=== PATIENT | male | born 1965 | race Caucasian/White ===

== ENCOUNTER 2019-07-19 16:01 | Inpatient (IN) | payer OTHER ==
[~2019-07-19] VITALS: Ht 182.9 cm; Wt 91.8 kg
[~2019-07-19 16:01] MED LIST: ALBU90OI6 INH; AZIT250 PO; CODGUAEL PO; META800 PO; OXYACE5T PO; RXMETA400 PO
[2019-07-19 16:32] LABS: BASOPHILS ABSOLUTE AUTO 0.05 K/mm3 (0.00-0.23); BASOPHILS PERCENT AUTO 1 % (0-2); EOSINOPHILS ABSOLUTE AUTO 0.17 K/mm3 (0.00-0.68); EOSINOPHILS PERCENT AUTO 2 % (0-6); Hematocrit 42.5 % (37.0-53.0); Hemoglobin 13.5 g/dL (13.5-17.5); IMMATURE GRAN ABSOLUTE AUTO 0.09 K/mm3 (0.00-0.10); IMMATURE GRAN PERCENT AUTO 1 % (0-1); LYMPHOCYTES ABSOLUTE AUTO 1.99 K/mm3 (0.84-5.20); LYMPHOCYTES PERCENT AUTO 27 % (21-46); MONOCYTES ABSOLUTE AUTO 0.86 K/mm3 (0.16-1.47); MONOCYTES PERCENT AUTO 12 % (4-13); Mean Corpuscular HGB 29.1 pg (26.0-34.0); Mean Corpuscular HGB Conc 31.8 g/dL (31.5-36.5); Mean Corpuscular Volume 92 fL (80-100); Mean Platelet Volume 9.7 fL (9.1-12.4); NEUTROPHILS PERCENT AUTO 58 % (41-73); Platelet Count 172 K/mm3 (150-400); RDW Coefficient Variation 16.2 % (11.7-14.2); Red Blood Cell Count 4.64 M/mm3 (4.30-5.90); White Blood Cell Count 7.46 K/mm3 (4.00-11.30)
[2019-07-19 16:55] LABS: Alanine Aminotransfer (ALT/SGP 31 U/L (12-78); Albumin, Blood 3.2 g/dL (3.4-5.0); Albumin/Globulin Ratio 0.8 (0.8-1.8); Alk Phos 166 U/L (50-136); Anion Gap 4 mmol/L (6-16); Aspartate Aminotrans (AST/SGOT 27 U/L (12-37); Bilirubin, Total 1.1 mg/dL (0.1-1.0); Blood Urea Nitrogen 15 mg/dL (8-24); Bun/Creatinine Ratio 24.4 (12.0-20.0); CO2, Blood 26 mmol/L (21-32); Calcium, Blood 8.7 mg/dL (8.5-10.1); Chloride, Blood 109 mmol/L (98-108); Creatinine, Blood 0.61 mg/dL (0.60-1.20); Globulin, Blood 3.9 g/dL (2.2-4.0); Glomerular Filtration Rate >60 (60-); Glucose, Blood 134 mg/dL (70-99); Sodium, Blood 139 mmol/L (136-145); Total Protein, Blood 7.1 g/dL (6.4-8.2); Troponin I 0.095 ng/mL (0.000-0.040)
[2019-07-19] MEDS ORDERED: HYDCHL25 PO (17:17)
[2019-07-19] MEDS ORDERED: AMLO10 PO (17:20)
[2019-07-19] MEDS ORDERED: DULERA 200 MCG/13 GM INH (17:48)
[2019-07-19] MEDS ORDERED: ALBU90OI INH (17:49)
[2019-07-19] MEDS ORDERED: IBUP800 PO (17:50)
[2019-07-19 19:51] LABS: U Amphetamine Screen Not Detected; U Barbituate Screen Not Detected; U Benzodiazapine Screen Not Detected; U Buprenorphine Screen Not Detected; U Cannabinoids Screen Not Detected; U Cocaine Screen Not Detected; U Methadone Screen Not Detected; U Methamphetamine Screen Not Detected; U Opiates Screen Not Detected; U Oxycodone Screen Not Detected; U Phencyclidine Screen Not Detected; U Propoxyphene Screen Not Detected
[2019-07-20 04:04] LABS: Anion Gap 5 mmol/L (6-16); Blood Urea Nitrogen 13 mg/dL (8-24); Bun/Creatinine Ratio 19.5 (12.0-20.0); CO2, Blood 29 mmol/L (21-32); Calcium, Blood 8.5 mg/dL (8.5-10.1); Chloride, Blood 107 mmol/L (98-108); Creatinine, Blood 0.67 mg/dL (0.60-1.20); Glomerular Filtration Rate >60 (60-); Glucose, Blood 109 mg/dL (70-99); Potassium, Blood 3.4 mmol/L (3.5-5.5); Sodium, Blood 141 mmol/L (136-145)
[2019-07-21 04:40] LABS: Anion Gap 7 mmol/L (6-16); Blood Urea Nitrogen 16 mg/dL (8-24); Bun/Creatinine Ratio 22.4 (12.0-20.0); CO2, Blood 27 mmol/L (21-32); Calcium, Blood 8.7 mg/dL (8.5-10.1); Chloride, Blood 106 mmol/L (98-108); Creatinine, Blood 0.71 mg/dL (0.60-1.20); Glomerular Filtration Rate >60 (60-); Glucose, Blood 103 mg/dL (70-99); Phosphorus, Blood 4.5 mg/dL (2.5-4.9); Potassium, Blood 3.8 mmol/L (3.5-5.5); Sodium, Blood 140 mmol/L (136-145)
[2019-07-23 04:19] LABS: Alanine Aminotransfer (ALT/SGP 29 U/L (12-78); Albumin, Blood 3.1 g/dL (3.4-5.0); Albumin/Globulin Ratio 0.9 (0.8-1.8); Alk Phos 143 U/L (50-136); Anion Gap 4 mmol/L (6-16); Aspartate Aminotrans (AST/SGOT 21 U/L (12-37); Bilirubin, Total 1.1 mg/dL (0.1-1.0); Blood Urea Nitrogen 23 mg/dL (8-24); Bun/Creatinine Ratio 24.2 (12.0-20.0); CO2, Blood 31 mmol/L (21-32); Calcium, Blood 8.7 mg/dL (8.5-10.1); Chloride, Blood 105 mmol/L (98-108); Creatinine, Blood 0.95 mg/dL (0.60-1.20); Globulin, Blood 3.6 g/dL (2.2-4.0); Glomerular Filtration Rate >60 (60-); Glucose, Blood 93 mg/dL (70-99); Potassium, Blood 4.4 mmol/L (3.5-5.5); Sodium, Blood 140 mmol/L (136-145); Total Protein, Blood 6.7 g/dL (6.4-8.2)
[2019-07-24 04:34] LABS: Anion Gap 6 mmol/L (6-16); Blood Urea Nitrogen 28 mg/dL (8-24); Bun/Creatinine Ratio 28.9 (12.0-20.0); CO2, Blood 29 mmol/L (21-32); Calcium, Blood 8.9 mg/dL (8.5-10.1); Chloride, Blood 104 mmol/L (98-108); Creatinine, Blood 0.97 mg/dL (0.60-1.20); Glomerular Filtration Rate >60 (60-); Glucose, Blood 105 mg/dL (70-99); Potassium, Blood 4.4 mmol/L (3.5-5.5); Sodium, Blood 139 mmol/L (136-145)
== END 2019-07-24 14:52 | disposition short-term general hospital (02) | DRG 286 ==
LOC: ER 16:01 → PCU 19:17
PROVIDERS: Internal Medicine Cardiovascular Disease; Nurse Practitioner; ADMIT Family Medicine
PROC: B2111ZZ Fluoroscopy of Multiple Coronary Arteries using Low Osmolar Contrast (ICD-10-PCS; principal; 2019-07-22)
DX: I11.0 Hypertensive heart disease with heart failure (principal); I50.21 Acute systolic (congestive) heart failure; F17.210 Nicotine dependence, cigarettes, uncomplicated; I42.8 Other cardiomyopathies; J44.9 Chronic obstructive pulmonary disease, unspecified; E87.6 Hypokalemia; I25.10 Atherosclerotic heart disease of native coronary artery without angina pectoris
CPT/HCPCS: 36415; 71045; 80048; 80053; 80069; 83735; 83880; 84484; 85025; 85347; 93005; 93010; 93308; 93321; 93454; 94640; 94760; 96374; 99152; 99153; 99285-25; C1769; C1894; C8929; J1644; J1650; J1940; J2250; J3010; J7030; Q9957; Q9967

== ENCOUNTER 2021-05-29 08:25 | Inpatient (IN) | payer OTHER ==
[~2021-05-29] VITALS: Ht 182.9 cm; Wt 89.1 kg
[~2021-05-29 08:25] MED LIST changes: +ALBU90OI INH; +AMLO10 PO; +DULERA 200 MCG/13 GM INH; +HYDCHL25 PO; +IBUP800 PO
[2021-05-29] MEDS ORDERED: SULTRIDS PO (08:37)
[2021-05-29 08:58] LABS: BASOPHILS ABSOLUTE AUTO 0.05 K/mm3 (0.00-0.23); BASOPHILS PERCENT AUTO 1 % (0-2); EOSINOPHILS ABSOLUTE AUTO 0.09 K/mm3 (0.00-0.68); EOSINOPHILS PERCENT AUTO 1 % (0-6); Hematocrit 49.6 % (37.0-53.0); Hemoglobin 15.9 g/dL (13.5-17.5); IMMATURE GRAN ABSOLUTE AUTO 0.08 K/mm3 (0.00-0.10); IMMATURE GRAN PERCENT AUTO 1 % (0-1); LYMPHOCYTES ABSOLUTE AUTO 1.31 K/mm3 (0.84-5.20); LYMPHOCYTES PERCENT AUTO 13 % (21-46); MONOCYTES ABSOLUTE AUTO 1.03 K/mm3 (0.16-1.47); MONOCYTES PERCENT AUTO 10 % (4-13); Mean Corpuscular HGB 29.2 pg (26.0-34.0); Mean Corpuscular HGB Conc 32.1 g/dL (31.5-36.5); Mean Corpuscular Volume 91 fL (80-100); Mean Platelet Volume 10.6 fL (9.1-12.4); NEUTROPHILS ABSOLUTE AUTO 7.93 K/mm3 (1.96-9.15); NEUTROPHILS PERCENT AUTO 76 % (41-73); Platelet Count 160 K/mm3 (150-400); RDW Coefficient Variation 17.6 % (11.7-14.2); RDW Standard Deviation 57.6 fL (35.1-46.3); Red Blood Cell Count 5.44 M/mm3 (4.30-5.90); White Blood Cell Count 10.49 K/mm3 (4.00-11.30)
[2021-05-29 10:05] LABS: Alanine Aminotransfer (ALT/SGP 45 U/L (12-78); Albumin/Globulin Ratio 0.7 (0.8-1.8); Alk Phos 209 U/L (50-136); Anion Gap 4 mmol/L (6-16); Aspartate Aminotrans (AST/SGOT 74 U/L (12-37); Bilirubin, Total 1.7 mg/dL (0.1-1.0); Blood Urea Nitrogen 13 mg/dL (8-24); Bun/Creatinine Ratio 15.8 (12.0-20.0); CO2, Blood 28 mmol/L (21-32); Calcium, Blood 8.8 mg/dL (8.5-10.1); Chloride, Blood 104 mmol/L (98-108); Creatinine, Blood 0.82 mg/dL (0.60-1.20); Globulin, Blood 4.4 g/dL (2.2-4.0); Glomerular Filtration Rate >60 (60-); Glucose, Blood 91 mg/dL (70-99); Sodium, Blood 136 mmol/L (136-145); Total Protein, Blood 7.4 g/dL (6.4-8.2)
--- NOTE | 2021-05-29 17:08 | NUR ---
PATIENT ARRIVED TO THE FLOOR FROM ER AT THIS TIME. FOOD GIVEN. NO COMPLAINTS OF PAIN OR NAUSEA. AAOX4. ABLE TO MAKE NEEDS AND WANTS KNOWN. NO SIGNS OR SYMPTOMS ACUTE DISTRESS NOTED. CALL LIGHT AND WATER IN EASY REACH. RIGHT ARM FROM ELBOW TO HAND IS SWOLLEN AND RED, WARM TO TOUCH. SCAB NOTED TO ELBOW, NO DRAINAGE NOTED. PATIENT TO BE NPO AFTER MIDNIGHT TONIGHT FOR I&D TOMORROW WITH DR REN. PATIENT VERBALIZED UNDERSTANDING. IV ABX INFUSING AT THIS TIME. PATIENT UP AD MAK IN ROOM. WILL MONITOR.
[2021-05-29 18:09] LABS: U Amphetamine Screen DETECTED; U Barbituate Screen Not Detected; U Benzodiazapine Screen Not Detected; U Buprenorphine Screen Not Detected; U Cannabinoids Screen Not Detected; U Cocaine Screen Not Detected; U Methadone Screen Not Detected; U Methamphetamine Screen Not Detected; U Opiates Screen Not Detected; U Oxycodone Screen Not Detected; U Phencyclidine Screen Not Detected; U Propoxyphene Screen Not Detected
[2021-05-30 03:59] LABS: Hematocrit 48.2 % (37.0-53.0); Hemoglobin 15.4 g/dL (13.5-17.5); Mean Corpuscular HGB 28.9 pg (26.0-34.0); Mean Corpuscular Volume 91 fL (80-100); Mean Platelet Volume 10.9 fL (9.1-12.4); Platelet Count 170 K/mm3 (150-400); RDW Coefficient Variation 17.3 % (11.7-14.2); RDW Standard Deviation 56.3 fL (35.1-46.3); Red Blood Cell Count 5.32 M/mm3 (4.30-5.90); White Blood Cell Count 9.46 K/mm3 (4.00-11.30)
--- NOTE | 2021-05-30 04:06 | NUR ---
SHIFT SUMMARY A/O X4, IND IN RM. COOPERATIVE AND PLEASANT WITH CARE. PT REPORTS R ARM SWELLING DECREASED THROUGHOUT SHIFT. NO PAIN REPORTED. VOIDING AND PASSING STOOL. NPO SINCE MIDNIGHT. NO N/V REPORTED. VSS. WILL CONTINUE TO MONITOR AND REPORT TO ONCOMING RN.
[2021-05-30 04:17] LABS: Anion Gap 5 mmol/L (6-16); Blood Urea Nitrogen 17 mg/dL (8-24); Bun/Creatinine Ratio 22.7 (12.0-20.0); CO2, Blood 24 mmol/L (21-32); Calcium, Blood 8.9 mg/dL (8.5-10.1); Chloride, Blood 109 mmol/L (98-108); Creatinine, Blood 0.75 mg/dL (0.60-1.20); Glomerular Filtration Rate >60 (60-); Glucose, Blood 109 mg/dL (70-99); Potassium, Blood 4.5 mmol/L (3.5-5.5); Sodium, Blood 138 mmol/L (136-145)
[2021-05-30 09:58] LABS: Influenza A, PCR NEGATIVE (NEGATIVE); Influenza B, PCR NEGATIVE (NEGATIVE); Resp Syncytial Virus, PCR NEGATIVE (NEGATIVE); SARS-Cov-2 (COVID-19) PCR, MMC NEGATIVE (NEGATIVE)
--- NOTE | 2021-05-30 10:17 | NUR ---
PT WENT TO OR AT APPROXIMATELY 1000.
--- NOTE | 2021-05-30 10:32 | NUR ---
05/30/21 1032 Roger Rowland PT ON SCHEDULED ANTIBIOTICS AND RECIEVED PRIOR TO OR.
--- NOTE | 2021-05-30 13:08 | NUR ---
DR. REN NOTIFIED THAT LAB WAS UNABLE TO DO CELL COUNT IN SYNOVIAL FLUID THE SPECIMEN WAS CLOTTED.
[2021-05-30 15:40] LABS: Vancomycin, Trough 12.9 ug/mL (5.0-10.0)
--- NOTE | 2021-05-30 18:29 | NUR ---
SHIFT SUMMARY PT IS POD#0 FROM R ARM I&D. PAIN MANAGED WITH TYLENOL, ADVIL AND ICE. PT DID INITIALLY NEED FENTANYL FOR PAIN MANAGEMENT AFTER ARRIVING BACK FROM PACU. PT IS INDEPENDENT IN THE ROOM. TOLERATING PO. ABLE TO VOID. WOUND VAC IN PLACE AND HOLDING SUCTION. WILL MONITOR UNTIL REPORT TO NOC RN.
[2021-05-31 08:47] LABS: BASOPHILS ABSOLUTE AUTO 0.06 K/mm3 (0.00-0.23); BASOPHILS PERCENT AUTO 1 % (0-2); EOSINOPHILS ABSOLUTE AUTO 0.19 K/mm3 (0.00-0.68); EOSINOPHILS PERCENT AUTO 2 % (0-6); Hematocrit 51.2 % (37.0-53.0); Hemoglobin 16.1 g/dL (13.5-17.5); IMMATURE GRAN ABSOLUTE AUTO 0.09 K/mm3 (0.00-0.10); IMMATURE GRAN PERCENT AUTO 1 % (0-1); LYMPHOCYTES ABSOLUTE AUTO 1.53 K/mm3 (0.84-5.20); LYMPHOCYTES PERCENT AUTO 19 % (21-46); MONOCYTES ABSOLUTE AUTO 0.65 K/mm3 (0.16-1.47); MONOCYTES PERCENT AUTO 8 % (4-13); Mean Corpuscular HGB 28.8 pg (26.0-34.0); Mean Corpuscular HGB Conc 31.4 g/dL (31.5-36.5); Mean Corpuscular Volume 91 fL (80-100); Mean Platelet Volume 10.3 fL (9.1-12.4); NEUTROPHILS PERCENT AUTO 69 % (41-73); Platelet Count 187 K/mm3 (150-400); RDW Coefficient Variation 18.3 % (11.7-14.2); RDW Standard Deviation 57.3 fL (35.1-46.3); White Blood Cell Count 8.22 K/mm3 (4.00-11.30)
--- NOTE | 2021-06-01 06:36 | NUR ---
SHIFT SUMMARY: PT AAOX4.VS WNL WITH DECREASED BP AND HEART RATE. UP AND INDEPENDENT IN ROOM. IV SALINE LOCK IN RIGHT FOREARM. WOUND VAC ATTACHED TO IND 2 DAYS AGO. MONITORING. ANTIBOTIC GIVEN ORDERED TOLERATED WELL. NPO AFTER MIDNIGHT ANOTHER IND SCHEDULED TODAY. VOID WELL. ON RA LUNG SOUNDS CLEAR. WILL CONTINUE TO MONITOR AND MAINTAIN ALL PRECAUTION.
--- NOTE | 2021-06-01 13:03 | NUR ---
History, Chart, Medications and Allergies reviewed before start of procedure. Patient confirms NPO status and agrees with scheduled surgery. Pre-Op teaching done. Pt verbalizes understanding.
--- NOTE | 2021-06-01 13:47 | NUR ---
06/01/21 1347 Vic Godinez PATIENT ON SCHEDULED ANTIBIOTICS. 1 PIECE OF BLACK FOAM REMOVED FROM RIGHT ELBOW WINDOW.
--- NOTE | 2021-06-01 17:34 | NUR ---
SHIFT SUMMARY PT A&OX4, VSS/RA. SECOND I&D TODAY, DRESSING/ZAHRA WRAP CDI, ELEVATED, WIGGLES FINGERS, DENIES N&T. PAIN MANAGED WITH 5 MG NORCO. DANIEL PO. VOIDING WELL. AMBULATING INDEPENDENTLY IN ROOM. IV RFA - SL; ABX PER EMAR. WILL REPORT TO ONCOMING NOC SHIFT RN.
[2021-06-02 04:17] LABS: BASOPHILS ABSOLUTE AUTO 0.06 K/mm3 (0.00-0.23); BASOPHILS PERCENT AUTO 1 % (0-2); EOSINOPHILS ABSOLUTE AUTO 0.27 K/mm3 (0.00-0.68); EOSINOPHILS PERCENT AUTO 4 % (0-6); Hematocrit 46.9 % (37.0-53.0); Hemoglobin 15.4 g/dL (13.5-17.5); IMMATURE GRAN PERCENT AUTO 1 % (0-1); LYMPHOCYTES ABSOLUTE AUTO 1.87 K/mm3 (0.84-5.20); LYMPHOCYTES PERCENT AUTO 25 % (21-46); MONOCYTES PERCENT AUTO 11 % (4-13); Mean Corpuscular HGB 29.3 pg (26.0-34.0); Mean Corpuscular HGB Conc 32.8 g/dL (31.5-36.5); Mean Corpuscular Volume 89 fL (80-100); Mean Platelet Volume 9.3 fL (9.1-12.4); NEUTROPHILS ABSOLUTE AUTO 4.42 K/mm3 (1.96-9.15); NEUTROPHILS PERCENT AUTO 59 % (41-73); Platelet Count 176 K/mm3 (150-400); RDW Coefficient Variation 17.2 % (11.7-14.2); RDW Standard Deviation 55.9 fL (35.1-46.3); Red Blood Cell Count 5.26 M/mm3 (4.30-5.90); White Blood Cell Count 7.52 K/mm3 (4.00-11.30)
--- NOTE | 2021-06-02 06:01 | NUR ---
COMPLAINES OF DISCOMFORT TO RIGHT ARM, REFUSES PAIN MEDICATION. RUE EDEMATOUS, DENIES NUMBNESS/TINGLING, ABLE TO WIGGLE FINGERS. FREQUENT REMINDERS TO KEEP ELEVATED ON PILLOW, VERBALIZED UNDERSTANDING. DRESSING C/D/I. INDEPENDENT IN ROOM. SAFETY MAINTAINED, CALL ROUSSEAU IN REACH.
[2021-06-02] MEDS ORDERED: SULTRIDS PO (11:47)
[2021-06-02] MEDS ORDERED: HYDROCODONE-AC1 EA10 PO (11:47)
[2021-06-02] MEDS ORDERED: ENTRESTO 24 MG1 EACH PO (11:48)
--- NOTE | 2021-06-02 12:02 | NUR ---
DISCHARGE NOTE: PATIENT WAS EDUCATED ON DISCHARGE INSTRUCTIONS. HE VERBALIZED UNDERSTANDING OF INSTRUCTIONS. HARD PERSCRIPTION IS IN HIS INSTRUCTIONS FOLDER AND HIS ABX WAS FAXED TO HIS PREFERRED PHARMACY. IV WAS TAKEN OUT AND WNL. HIS RIGHT ARM DRESSING WAS CHANGED WITH DR. RAO AT BEDSIDE. IT IS C/D/I. DENIES NUMBNESS AND TINGLING. CAN MOVE FINGERS AND TOES AND ELBOW. PATIENT IS DRESSED AND HAS PERSONAL ITEMS GATHERED. PATIENT WALKED OUT TO MEET HIS FRIEND TO DRIVE HIM HOME.
== END 2021-06-02 12:05 | disposition home or self-care (01) | DRG 603 ==
LOC: ER 08:25 → SURS 16:49
PROVIDERS: Nurse Practitioner Acute Care; Orthopaedic Surgery; Physician Assistant; ADMIT Internal Medicine
PROC: 0HD6XZZ Extraction of Back Skin, External Approach (ICD-10-PCS; 2021-06-01)
PROC: 0HDDXZZ Extraction of Right Lower Arm Skin, External Approach (ICD-10-PCS; principal; 2021-06-01 12:30)
DX: L03.113 Cellulitis of right upper limb (principal); I50.22 Chronic systolic (congestive) heart failure; M70.21 Olecranon bursitis, right elbow; I11.0 Hypertensive heart disease with heart failure; A49.01 Methicillin susceptible Staphylococcus aureus infection, unspecified site; Z87.891 Personal history of nicotine dependence; E87.5 Hyperkalemia; Z20.822 Contact with and (suspected) exposure to COVID-19; Z56.0 Unemployment, unspecified
CPT/HCPCS: 0241U; 36415; 73201; 80048; 80053; 80202; 82947; 84132; 85025; 85027; 85651; 86140; 86141; 87040; 87070; 87075; 87077; 87147; 87186; 87205; 93005; 93010; 93971; 96365; 96375; 99285-25; A9270; J0295; J0690; J0696; J2250; J2704; J3010; J3370; J7050; J7120; Q9967

== ENCOUNTER → 2024-05-20 | Outpatient (CLI) | payer OTHER ==
[~2024-05-20] MED LIST changes: +ENTRESTO 24 MG1 EACH PO; +HYDROCODONE-AC1 EA10 PO; +SULTRIDS PO
[2024-05-20 19:05] LABS: BASOPHILS ABSOLUTE AUTO 0.06 K/mm3 (0.00-0.23); BASOPHILS PERCENT AUTO 1 % (0-2); EOSINOPHILS ABSOLUTE AUTO 0.22 K/mm3 (0.00-0.68); EOSINOPHILS PERCENT AUTO 3 % (0-6); IMMATURE GRAN PERCENT AUTO 1 % (0-1); LYMPHOCYTES ABSOLUTE AUTO 2.34 K/mm3 (0.84-5.20); LYMPHOCYTES PERCENT AUTO 30 % (21-46); MONOCYTES ABSOLUTE AUTO 0.79 K/mm3 (0.16-1.47); MONOCYTES PERCENT AUTO 10 % (4-13); Mean Corpuscular HGB 33.1 pg (26.0-34.0); Mean Corpuscular HGB Conc 34.8 g/dL (31.5-36.5); Mean Corpuscular Volume 95 fL (80-100); Mean Platelet Volume 11.2 fL (9.1-12.4); NEUTROPHILS PERCENT AUTO 56 % (41-73); Platelet Count 89 K/mm3 (150-400); RDW Coefficient Variation 13.9 % (11.7-14.2); RDW Standard Deviation 48.3 fL (35.1-46.3); Red Blood Cell Count 4.84 M/mm3 (4.30-5.90); White Blood Cell Count 7.91 K/mm3 (4.00-11.30)
[2024-05-20 20:31] LABS: Alanine Aminotransfer (ALT/SGP 42 U/L (12-78); Alk Phos 74 U/L (50-136); Anion Gap 14 mmol/L (3-11); Aspartate Aminotrans (AST/SGOT 30 U/L (12-37); Bilirubin, Total 0.5 mg/dL (0.1-1.0); Blood Urea Nitrogen 22 mg/dL (8-24); CO2, Blood 24 mmol/L (21-32); Calcium, Blood 9.8 mg/dL (8.5-10.1); Chloride, Blood 103 mmol/L (98-108); Cholesterol 229 mg/dL (50-200); Globulin, Blood 4.2 g/dL (2.2-4.0); Glucose, Blood 137 mg/dL (70-99); Sodium, Blood 137 mmol/L (136-145); Total Protein, Blood 8.2 g/dL (6.4-8.2)
[2024-05-20 20:48] LABS: Bilirubin, Direct 0.1 mg/dL (0.0-0.3); Bilirubin, Indirect 0.4 mg/dL (0.1-0.7); Bun/Creatinine Ratio 19.1 (12.0-20.0); Creatinine, Blood 1.15 mg/dL (0.60-1.20); Glomerular Filtration Rate 72 (60-)
[2024-05-20 20:50] LABS: CHOL/HDL RATIO Unable to Calculate; LDL/HDL RATIO Unable to Calculate; Low Density Lipoprotein Chol Unable to Calculate mg/dL (0-110); Triglycerides 1007 mg/dL (30-160); Very Low Density Lipoprot Chol 201 mg/dL (6-32)
[2024-05-23 09:17] LABS: HIV 1,2 COMBO ANTIGEN/ANTIBODY Negative (Negative)
[2024-05-23 13:13] LABS: HEPATITIS C AB CIA INTERP Negative (Negative); HEPATITIS C ANTIBODY CIA INDEX 0.09 IV
== END ==
LOC: LAB SHORT 17:56 → LAB 17:56
PROVIDERS: Nurse Practitioner Family
DX: Z11.4 Encounter for screening for human immunodeficiency virus [HIV] (principal); Z11.59 Encounter for screening for other viral diseases; I50.9 Heart failure, unspecified
CPT/HCPCS: 80053; 80061; 82248; 83036; 85025

== ENCOUNTER → 2024-08-19 | Outpatient (CLI) | payer OTHER | LOC: LAB 11:02 → LAB SHORT 11:02 | DX: E11.65 Type 2 diabetes mellitus with hyperglycemia (principal); E78.1 Pure hyperglyceridemia; I10 Essential (primary) hypertension; Z12.5 Encounter for screening for malignant neoplasm of prostate ==

== ENCOUNTER → 2025-01-28 | Outpatient (CLI) | payer OTHER ==
[2025-01-28 10:12] LABS: Protein, Urine Quantitative 9.9 mg/dL (0.0-11.9)
[2025-01-28 10:19] LABS: Microalbumin, Urine Quant. <5.000 mg/L (0.000-20.000)
== END | disposition home or self-care (01) ==
LOC: LAB 05:00 → LAB SHORT 05:00 → LAB FUT 01-22 08:45
PROVIDERS: Internal Medicine Nephrology
DX: N18.30 Chronic kidney disease, stage 3 unspecified (principal); D63.1 Anemia in chronic kidney disease; N25.81 Secondary hyperparathyroidism of renal origin; E55.9 Vitamin D deficiency, unspecified; E78.00 Pure hypercholesterolemia, unspecified; G60.9 Hereditary and idiopathic neuropathy, unspecified; D51.8 Other vitamin B12 deficiency anemias; D52.8 Other folate deficiency anemias; D50.9 Iron deficiency anemia, unspecified; R76.9 Abnormal immunological finding in serum, unspecified; R94.5 Abnormal results of liver function studies; R94.6 Abnormal results of thyroid function studies
CPT/HCPCS: 82043; 82570; 84156